=== PATIENT | male | born 1945 | race Caucasian/White ===

== ENCOUNTER 2025-02-17 18:31 | Emergency (ER) | payer MEDICARE, BC ==
[2025-02-17] MEDS ORDERED: Acetaminophen 325 MG TAB ONE (20:23)
== END 2025-02-17 20:28 | disposition home or self-care (01) ==
LOC: MADERS 18:31
DX: M19.031 Primary osteoarthritis, right wrist (principal); E11.9 Type 2 diabetes mellitus without complications; I10 Essential (primary) hypertension; Z79.899 Other long term (current) drug therapy; W19.XXXA Unspecified fall, initial encounter
CPT/HCPCS: 99283

== ENCOUNTER 2025-04-20 16:29 | Emergency (ER) | payer MEDICARE, BC | END 2025-04-20 18:00 | disposition home or self-care (01) | LOC: MADERS 16:29 | DX: S01.01XA Laceration without foreign body of scalp, initial encounter (principal); E11.9 Type 2 diabetes mellitus without complications; I10 Essential (primary) hypertension; W01.0XXA Fall on same level from slipping, tripping and stumbling without subsequent striking against object, initial encounter; Y93.89 Activity, other specified; Y92.89 Other specified places as the place of occurrence of the external cause; Z79.899 Other long term (current) drug therapy | CPT/HCPCS: 12002; 70450; 72125 ==

== ENCOUNTER 2025-04-29 13:42 | Outpatient (CLI) | payer MEDICARE, BC ==
[2025-04-29 14:01] LABS: BUN (Urea Nitrogen) 17.0 mg/dL (8.4-25.7); Calc. Creatinine Clearance 0.0 mL/min (70-130)
== END 2025-04-29 13:43 | disposition home or self-care (01) ==
LOC: MADLAB 13:42
PROVIDERS: ATTEND Orthopaedic Surgery Hand Surgery
DX: M1A.9XX1 Chronic gout, unspecified, with tophus (tophi) (principal); M86.9 Osteomyelitis, unspecified; L02.413 Cutaneous abscess of right upper limb
CPT/HCPCS: 82565; 84520; 86140